=== PATIENT | female | born 1940 | race Caucasian/White ===

== ENCOUNTER 2016-05-05 20:23 | Inpatient (IN) | payer MEDICARE ==
--- NOTE | ~2016-05-05 | DS ---
Discharge Summary [id number] [place]. [address] NAME: CEZAR ABAD : 40 STATUS : ADM IN PAT#: [id number] AGE: 75 ADM/REG DATE : 05/05/16 MR#: [id number] REPORT SERV DATE: 05/14/16 DICTATED BY: HELADIO TRIPATHI DATE: 05/13/16 REPORT STATUS : Draft TRANSCRIBED BY: MODL DATE: 05/13/16 ADMISSION DATE: 05/05/2016 DISCHARGE DATE: ADDENDUM: To discharge summary dictated by Dr. Berg, work #[id number]. The patient was not discharged to intermediate facility yesterday secondary to unavailability of space. However, today, the patient will be discharged. ALLAN/LEYLA Heladio Tripathi MD / [id number] CC: Rolando Berg MD
--- NOTE | ~2016-05-05 | DS ---
Discharge Summary [facility] [address] [place]. [address] NAME: CEZAR ABAD : 40 STATUS : ADM IN PAT#: [id number] AGE: 75 ADM/REG DATE : 05/05/16 MR#: [id number] REPORT SERV DATE: 05/16/16 DICTATED BY: HELADIO TRIPATHI DATE: 05/15/16 REPORT STATUS : Draft TRANSCRIBED BY: LEYLA DATE: 05/15/16 ADMISSION DATE: 05/05/2016 DISCHARGE DATE: ADDENDUM: To discharge summary dictated by Dr. Berg on 05/13/2016 and also an addendum to discharge summary dictated by Dr. Tripathi on 05/14/2016. The patient was scheduled to be discharged on 05/13/2016; however, the patient was unable to be discharged due to unavailability of space. On 05/13/2016, [facility]; however, the patient was noted to have hyperkalemia with a potassium of 5.9. Management was initiated to correct her potassium. Her potassium was eventually gotten under control; however, the patient acutely decompensated overnight requiring being transitioned to BiPAP and also put on restraint due to severe agitation. The patient was also noted to have worsening kidney function with creatinine trending up to 2.09. The patient was placed on IV normal fluids with improvement. She was also noted to have elevated BUN, likely etiology due to increased urea production in the setting of Solu- Medrol that the patient was receiving. Status post IV fluid initiation, her kidney function has significantly improved. Her BUN has trended down. Creatinine is currently 1.29. Based on resolution of symptoms given that the patient is hemodynamically stable to be transferred to the [facility], the patient will be discharged today; however, we will continue normal saline until time of discharge. All other information noted on the discharge summary previously remains the same. TERESSA Heladio Tripathi MD / [id number] CC: MD Matthew Isbell M.D.
--- NOTE | ~2016-05-05 | HP ---
History And Physical [address] [address] [facility] [place]. [address] NAME: CEZAR ABAD : 40 STATUS : ADM IN [facility]#: [id number] AGE: 75 ADM/REG DATE : 05/05/16 MR#: [id number] REPORT SERV DATE: 05/06/16 DICTATED BY: YAS JEREZ DATE: 05/06/16 REPORT STATUS : Draft TRANSCRIBED BY: MODL DATE: 05/06/16 DATE OF ADMISSION: 05/05/2016 CHIEF COMPLAINT: A 75-year-old female presenting with increasing shortness of breath and confusion. HISTORY OF PRESENTING ILLNESS: The patient's history was obtained through careful interview with the patient and granddaughter coupled with review of [facility] medical records. The patient on 04/28/2016 had a fall, broke her right humerus. She was evaluated at [facility], placed in a sling. Unfortunately she has had difficult recovery from that right humerus fracture. She describes right arm pain, but is really unable to describe a quality or severity of that pain. But then over the last several days, she has had increasing weakness finally to the point where she does not even get out of bed, and needs increasing assistance with any of her activities of daily living. Around 05/02/2016 she began to develop an increasing cough and shortness of breath characterized by dyspnea on exertion. The cough has been nonproductive. Then today, she was being evaluated for physical activity and the family checked an O2 saturation and after exertion it dropped down to 60% on 4 L nasal cannula and they realized she had to come to the hospital for further evaluation. Also the patient over last two days has had increasing confusion, incoherence. Today she was talking to people who were not there and having overt hallucinations at times. She denies any chest pain. No abdominal pain. No headache. No light headedness. She describes diaphoresis, but no fevers or chills. REVIEW OF SYSTEMS: Otherwise, a 14-point review of systems was obtained and was negative. PAST MEDICAL HISTORY: 1. Parkinson disease. 2. Dementia. 3. COPD on 4 L nasal cannula. 4. Obstructive sleep apnea, but refuses her home CPAP. 5. Chronic pain management for chronic back pain. 6. Diabetes. 7. Hypertension. 8. Negative stress test in October 2014 with an ejection fraction greater than 60% and negative Holter monitor as well. History And Physical [address] [place]. [address] NAME: CEZAR ABAD : 40 STATUS : ADM IN PAT#: [id number] AGE: 75 ADM/REG DATE : 05/05/16 MR#: [id number] REPORT SERV DATE: 05/06/16 DICTATED BY: YAS JEREZ DATE: 05/06/16 REPORT STATUS : Draft TRANSCRIBED BY: LEYLA DATE: 05/06/16 PAST SURGICAL HISTORY: 1. Knee surgery. 2. Shoulder surgery. 3. Hysterectomy. 4. Appendectomy. ALLERGIES: TO SULFA. SOCIAL HISTORY: Quit smoking more than 10 years ago. No alcohol abuse. Lives in [place], [place]. Lives with a grandson, but he is not present through the day hours. The patient has been a for 7 years. She has three children, but only one is living and they lives in [place], [place]. FAMILY HISTORY: Son at young age in a motor vehicle accident. Had a daughter who 4 years ago, and she had diabetes and heart disease. CURRENT MEDICATIONS: 1. Albuterol inhaler. 2. Baclofen 10 mg p.o. b.i.d. 3. Symbicort two puffs inhale twice a day. 4. Neurontin 300 mg p.o. q.h.s. 5. Amaryl 2 mg daily. 6. Hydrochlorothiazide 25 mg daily. 7. Hydrocodone p.r.n. 8. Lisinopril 40 mg p.o. daily. 9. Lopressor 25 mg p.o. b.i.d. 10.Actos 45 mg daily. 11.Ranitidine 150 mg p.o. b.i.d. 12.Requip 1 mg p.o. q.h.s. 13.Crestor 20 mg daily. PHYSICAL EXAMINATION: VITAL SIGNS: Temperature 97.9, pulse 82, blood pressure 183/49, respiratory rate 20, and O2 saturation 93% on 4 L nasal cannula. GENERAL: An ill-appearing female. She appears in distress from her difficult labored breathing. HEENT: Pupils equal, round, and reactive to light. No conjunctival pallor. No scleral icterus. Nares are patent. Oropharynx is clear of obstruction. Moist mucous membranes. NECK: Trachea midline. No thyromegaly. LYMPH: No cervical lymphadenopathy. No supraclavicular lymphadenopathy. RESPIRATORY: The patient has quite harsh inspiratory and expiratory wheezes and upper respiratory rhonchi. No rales. No focal egophony. The patient does have quite a labored respiratory effort, and she is heaving with her abdomen to assist in breathing. CARDIOVASCULAR: Regular rate and rhythm. No murmurs, rubs, or gallops. No extremity edema is appreciated. ABDOMEN: Soft, nontender, and nondistended. Normal bowel sounds auscultated throughout. No History And Physical [address] [address] NAME: CEZAR ABAD : 40 STATUS : ADM IN [facility]#: [id number] AGE: 75 ADM/REG DATE : 05/05/16 MR#: [id number] REPORT SERV DATE: 05/06/16 DICTATED BY: YAS JEREZ DATE: 05/06/16 REPORT STATUS : Draft TRANSCRIBED BY: LEYLA DATE: 05/06/16 hepatosplenomegaly. DERMATOLOGICAL: Warm and dry extremities. No pallor. No cyanosis. PSYCHIATRIC: The patient is alert, appropriate. She is poorly oriented to time, location, and her recent history. She has a normal affect though and a very pleasant mood. LABORATORY DATA: ABG demonstrates pH 7.34, pCO2 of 63, a PaO2 of 64, and a bicarbonate of 33 on 36% FiO2. Urinalysis shows positive leukocyte esterase with 34 white blood cells. White blood cell count 7.0, hemoglobin 9.8, hematocrit 32.5, and platelets 201. Sodium 142, potassium 4.3, chloride 98, bicarb 36, BUN 36, creatinine 1.17, and glucose 239. Brain natriuretic peptide 154. Troponin negative. INR 1.0. STUDIES: A CT angiogram of the chest shows no pulmonary embolism, no infiltrates. ASSESSMENT AND PLAN: 1. Hypoxic and hypercapnic respiratory failure. Place on BiPAP overnight. Provide supportive care. 2. Chronic obstructive pulmonary disease exacerbation. Place on IV Solu-Medrol, Duo nebulizers, doxycycline. 3. Parkinson disease. 4. Dementia. 5. Diabetes. Check hemoglobin A1c. Place on home medications. Continue sliding scale insulin. 6. Urinary tract infection. Check urine culture. Place on IV Rocephin. I did the discuss the case with Dr. Santamaria in detail from Critical Care. KPL/MODL Yas Jerez M.D. / [id number] CC: Brayan Barnard M.D.
--- NOTE | ~2016-05-05 | DS ---
Discharge Summary [address] [facility] [place]. [address] NAME: CEZAR ABAD : 40 STATUS : ADM IN [facility]#: [id number] AGE: 75 ADM/REG DATE : 05/05/16 MR#: [id number] REPORT SERV DATE: 05/13/16 DICTATED BY: ROLANDO BERG DATE: 05/12/16 REPORT STATUS : Draft TRANSCRIBED BY: MODL DATE: 05/12/16 ADMISSION DATE: 05/05/2016 DISCHARGE DATE: REASON FOR ADMISSION: Shortness of breath with confusion. PROCEDURES DONE: 1. On 05/05/2016 CTA of chest. No PE. Minor subsegmental atelectasis, peripheral right lower lobe. No acute other pulmonary disease. 2. On 05/05/2016, x-ray right shoulder, multiple impacted fracture of proximal right humerus. 3. On 05/06/2016, chest x-ray: Mild vascular congestion. Borderline heart size. Acute humeral neck fracture. 4. On 05/07/2016, CT head without contrast: No acute infarct or hemorrhage. Mild atrophy and chronic white matter gliosis. HISTORY OF HOSPITAL STAY: A 75-year-old white female with past medical history of questionable Parkinson disease, dementia, COPD on 4 L nasal cannula, DONATO not on home CPAP, chronic pain, diabetes type 2, hypertension, presenting with shortness of breath and with confusion. The patient was admitted for further evaluation and shortness of breath with confusion. The patient was developing acute exacerbation of COPD with acute on chronic hypercapnic respiratory failure. The patient required BiPAP in order to resolve some of the patient's shortness of breath. In addition, the patient was also had a UTI which responded well with Ancef. Once the patient received her antibiotics, her UTI eventually cleared up. More importantly, the patient's dementia was exacerbating the patient confusion. The patient was started on Seroquel 12.5 mg b.i.d., but subsequently was given Seroquel 12.5 mg a.m. and 25 mg p.m. Her p.m. dose eventually helped the patient use her BiPAP at night which helped tremendously regarding the patient's shortness of breath. The patient's acute on chronic hypercapnic hypoxemic respiratory failure greatly improved with the use of BiPAP. Family has been advised that the patient will need to continue the Seroquel in order for the patient to use her BiPAP. DISPOSITION: The patient is feeling fine. No complaints. ACTIVITY: As tolerated. DIET: Diabetic. INSTRUCTIONS UPON DISCHARGE: The patient is to follow up with PMD within one to two weeks. MEDICATIONS UPON DISCHARGE: 1. Gabapentin 300 mg p.o. q.h.s. 2. Baclofen 10 mg p.o. b.i.d. 3. Zantac 150 mg p.o. b.i.d. 4. Amaryl 2 mg p.o. q.h.s. 5. Insulin sliding scale medium dose. Discharge Summary [address] [address] NAME: CEZAR ABAD : 40 STATUS : ADM IN [facility]#: [id number] AGE: 75 ADM/REG DATE : 05/05/16 MR#: [id number] REPORT SERV DATE: 05/13/16 DICTATED BY: ROLANDO BERG DATE: 05/12/16 REPORT STATUS : Draft TRANSCRIBED BY: LEYLA DATE: 05/12/16 6. Lisinopril 40 mg p.o. daily. 7. Metoprolol 25 mg p.o. b.i.d. 8. Actos 45 mg p.o. daily. 9. Nystatin powder topical t.i.d. 10.Seroquel 25 mg p.o. q.h.s. 11.Seroquel 12.5 mg p.o. q.a.m. 12.Requip 1 mg p.o. q.h.s. 13.DuoNeb nebulizers q.4 hours p.r.n. 14.Symbicort 160/4.5 mcg two puffs b.i.d. 15.Hydrochlorothiazide 25 mg p.o. b.i.d. 16.Crestor 20 mg p.o. daily. 17.Ferney 7.5 mg three times a day p.r.n. 18.ProAir one to two puffs p.r.n. DIAGNOSES UPON DISCHARGE: 1. Shortness of breath with confusion secondary to acute exacerbation of chronic obstructive pulmonary disease, acute on chronic hypercapnic hypoxemia respiratory failure, dementia, urinary tract infection. 2. Acute exacerbation of chronic obstructive pulmonary disease. 3. Acute on chronic hypercapnic hypoxemic respiratory failure. 4. Dementia. 5. Urinary tract infection secondary to Escherichia coli. 6. Diabetes type 2. 7. Hypertension. 8. Dementia. 9. History of Parkinson's disease, not on meds. 10.Chronic pain. 11.Hypercholesterolemia. FBJ/MODL Rolando Berg MD / [id number] CC: Rolando Berg MD
--- NOTE | ~2016-05-05 | DS ---
Discharge Summary [place] [address] [facility] [address] [place]. [address] NAME: CEZAR ABAD : 40 STATUS : DIS IN PAT#: [id number] AGE: 75 ADM/REG DATE : 05/05/16 MR#: [id number] REPORT SERV DATE: 05/17/16 DICTATED BY: HELADIO TRIPATHI DATE: 05/16/16 REPORT STATUS : Draft TRANSCRIBED BY: LEYLA DATE: 05/16/16 ADMISSION DATE: 05/05/2016 DISCHARGE DATE: 05/16/2016 ADDENDUM: The patient was unable to be discharged yesterday due to the fact that she was in physical restraint for less than 24 hours. Therefore, the patient was kept in-house overnight. No acute events overnight. The patient was hemodynamically stable, was not placed on restraints and will be discharged today. ALLAN/LEYLA Heladio Tripathi MD / [id number]
[2016-05-05 18:16] LABS: BASOPHILS 0.3 %; BASOPHILS ABSOLUTE 0.02 10/3/uL (0.0-0.16); EOSINOPHILS 1.3 %; EOSINOPHILS ABSOLUTE 0.09 10/3/uL (0.0-0.53); ER CBC TAT 0 Hrs 15 Mins; HEMATOCRIT 32.5 % (36.0-48.0); HEMOGLOBIN 9.8 g/dL (12.0-16.0); IMMATURE GRANULOCYTES 0.6 %; IMMATURE GRANULOCYTES ABSOLUTE 0.04 10/3/uL (0.0-0.11); LYMPHOCYTES 7.7 %; LYMPHOCYTES ABSOLUTE 0.54 10/3/uL (0.67-4.30); MEAN CORPUS HGB CONC 30.2 g/dL (32.0-36.0); MEAN CORPUSCULAR HEMOGLOB 28.4 pg (26.0-34.0); MEAN CORPUSCULAR VOLUME 94.2 fL (80-100); MEAN PLATELET VOLUME 10.9 fL (9.2-13.0); MONOCYTES ABSOLUTE 0.14 10/3/uL (0.21-1.20); NEUTROPHILS 88.1 %; NEUTROPHILS ABSOLUTE 6.18 10/3/uL (2.02-8.40); PLATELET COUNT 201 10/3/uL (150-400); RBC DISTRIBUTION WIDTH 14.8 % (12.0-16.0); RED CELL COUNT 3.45 10/6/uL (4.0-5.6)
[2016-05-05 18:17] LABS: MANUAL DIFF NO %
[2016-05-05 18:34] LABS: PROTIME (NOT ORD) 12.7 SEC (12.0-14.5)
[2016-05-05 18:35] LABS: BUN (BLOOD UREA NITROGEN) 36 MG/DL (6-23); CALCIUM, SERUM 9.1 MG/DL (8.5-10.4); CHLORIDE, SERUM 98 MMOL/L (96-112); CO2 (CARBON DIOXIDE) 34 MMOL/L (24-34); CREATININE 1.17 MG/DL (0.55-1.02); GFR AFRICAN AMERICAN 53 ML/MIN (>=60); GFR NON AFRICAN AMERICAN 46 ML/MIN (>=60); GLUCOSE, SERUM 239 MG/DL (60-99); PARTIAL THROMBO TIME 27.4 SEC (22.5-37.2); POTASSIUM, SERUM 4.3 MMOL/L (3.5-5.3); SODIUM, SERUM 142 MMOL/L (135-148); TROPONIN I <0.02 NG/ML (<0.05)
[2016-05-05 18:40] LABS: CHEST PAIN PROFILE TAT 0 Hrs 34 Mins
[2016-05-05 19:08] LABS: BE (BASE EXCESS) 6.2 MEQ/L (0 +/- 2.5); CARBOXYHEMOGLOBIN 1.3 % (0-3); DEVICE NC; HCO3 (ACTUAL BICARBONATE) 33.5 MEQ/L (23-27); HEMOBLOGIN CONTENT 11.1 G/DL (12-16); INSTRUMENT SERIAL # 8087; METHEMOGLOBIN 0.3 % (0-3); O2 CONTENT 14.2 VOL% (18-24); PCO2 (CO2 TENSION) 63 MMHG (35-45); PO2 (O2 TENSION) 64 MMHG (79-93); SAMPLE Arterial; pH 7.34 (7.37-7.43)
[2016-05-05 19:57] LABS: ASCORBIC ACID (UR NOT ORDER) NEG (NEG); BILIRUBIN, URINE NEGATIVE (NEG); ER URINALYSIS TAT 0 Hrs 14 Mins; KETONE, URINE 20 MG/DL (NEG); LEUKOCYTE ESTERASE(NOT OR MOD (NEG); NITRITE (URINE) NEG (NEG); WBC (NOT ORDERED) (RFLEX) 34 (0-5)
[2016-05-05] MEDS ORDERED: NEUR300 PO (22:39)
[2016-05-05] MEDS ORDERED: HYDROCHLOROT25 MG PO (22:39)
[2016-05-05] MEDS ORDERED: AMARYL2 PO (22:39)
[2016-05-05] MEDS ORDERED: LOP25 PO (22:40)
[2016-05-05] MEDS ORDERED: LIOR10 PO (22:40)
[2016-05-05] MEDS ORDERED: LISINOPRIL40 MG PO (22:40)
[2016-05-05] MEDS ORDERED: ACTOS45 PO (22:40)
[2016-05-05] MEDS ORDERED: CRESTOR20 MG PO (22:41)
[2016-05-05] MEDS ORDERED: ZANTAC 150 PO (22:41)
[2016-05-05] MEDS ORDERED: REQUIP1 PO (22:41)
[2016-05-05] MEDS ORDERED: NORCO1 TA2 PO (22:41)
[2016-05-05] MEDS ORDERED: PROAIR HFA INH (22:42)
[2016-05-05] MEDS ORDERED: SYMBICORT 160/41 INH INH (22:46)
[2016-05-06 04:06] LABS: ALLENS TEST Pos; BE (BASE EXCESS) 7.9 MEQ/L (0 +/- 2.5); BIPAP 18/6 cm.H2O; CARBOXYHEMOGLOBIN 0.4 % (0-3); HCO3 (ACTUAL BICARBONATE) 32.7 MEQ/L (23-27); HEMOBLOGIN CONTENT 10.2 G/DL (12-16); INSTRUMENT SERIAL # 8083; METHEMOGLOBIN 0.2 % (0-3); O2 CONTENT 13.8 VOL% (18-24); OPERATOR ID 35190; PCO2 (CO2 TENSION) 47 MMHG (35-45); PO2 (O2 TENSION) 78 MMHG (79-93); SAMPLE Arterial; pH 7.46 (7.37-7.43)
[2016-05-06 07:04] LABS: BASOPHILS 0.2 %; BASOPHILS ABSOLUTE 0.01 10/3/uL (0.0-0.16); EOSINOPHILS 0 %; HEMATOCRIT 30.8 % (36.0-48.0); HEMOGLOBIN 9.6 g/dL (12.0-16.0); IMMATURE GRANULOCYTES 0.9 %; IMMATURE GRANULOCYTES ABSOLUTE 0.04 10/3/uL (0.0-0.11); LYMPHOCYTES ABSOLUTE 0.68 10/3/uL (0.67-4.30); MEAN CORPUS HGB CONC 31.2 g/dL (32.0-36.0); MEAN CORPUSCULAR HEMOGLOB 28.8 pg (26.0-34.0); MEAN CORPUSCULAR VOLUME 92.5 fL (80-100); MEAN PLATELET VOLUME 10.9 fL (9.2-13.0); MONOCYTES 8.5 %; MONOCYTES ABSOLUTE 0.36 10/3/uL (0.21-1.20); NEUTROPHILS 74.4 %; NEUTROPHILS ABSOLUTE 3.15 10/3/uL (2.02-8.40); PLATELET COUNT 207 10/3/uL (150-400); RBC DISTRIBUTION WIDTH 14.7 % (12.0-16.0); RED CELL COUNT 3.33 10/6/uL (4.0-5.6); WHITE BLOOD CELLS 4.2 10/3/uL (4.5-10.5)
[2016-05-06 07:06] LABS: MANUAL DIFF NO %
[2016-05-06 07:11] LABS: INTERNATIONAL NORMAL RATI 1.1 UNITS (-); PARTIAL THROMBO TIME 31.4 SEC (22.5-37.2); PROTIME (NOT ORD) 14.1 SEC (12.0-14.5)
[2016-05-06 07:29] LABS: A/G RATIO 0.7 (0.7-1.9); ALBUMIN 2.9 G/DL (3.5-5.0); ALKALINE PHOSPHATASE 53 U/L (45-117); BUN (BLOOD UREA NITROGEN) 34 MG/DL (6-23); CALCIUM, SERUM 9.1 MG/DL (8.5-10.4); CHLORIDE, SERUM 98 MMOL/L (96-112); CO2 (CARBON DIOXIDE) 33 MMOL/L (24-34); CREATININE 1.26 MG/DL (0.55-1.02); GFR AFRICAN AMERICAN 48 ML/MIN (>=60); GFR NON AFRICAN AMERICAN 42 ML/MIN (>=60); GLOBULIN 4.1 G/DL (2.5-4.1); GLUCOSE, SERUM 134 MG/DL (60-99); PHOSPHORUS, SERUM 1.8 MG/DL (2.5-4.5); POTASSIUM, SERUM 3.6 MMOL/L (3.5-5.3); SGOT(AST) 11 U/L (5-40); SGPT(ALT) 14 U/L (5-65); SODIUM, SERUM 141 MMOL/L (135-148); TROPONIN I <0.02 NG/ML (<0.05)
[2016-05-06 07:48] LABS: PROCALCITONIN <0.05 ng/mL (<0.5)
[2016-05-06 07:49] LABS: B NATRIURETIC PEPTIDE (BNP) 146.1 PG/ML (< 100.0)
[2016-05-06 12:48] LABS: GLYCOHEMOGLOBIN (HbA1c) 6.1 % (4.7-6.1)
[2016-05-07 09:48] LABS: BE (BASE EXCESS) 5.3 MEQ/L (0 +/- 2.5); CARBOXYHEMOGLOBIN 0.3 % (0-3); HEMOBLOGIN CONTENT 11.1 G/DL (12-16); INSTRUMENT SERIAL # 11843; METHEMOGLOBIN 0.5 % (0-3); O2 CONTENT 13.6 VOL% (18-24); PCO2 (CO2 TENSION) 51 MMHG (35-45); PO2 (O2 TENSION) 56 MMHG (79-93)
[2016-05-07 09:49] LABS: ALLENS TEST Pos; DEVICE NC; SAMPLE Arterial
[2016-05-07 10:15] LABS: HEMATOCRIT 31.1 % (36.0-48.0); HEMOGLOBIN 9.8 g/dL (12.0-16.0); MEAN CORPUS HGB CONC 31.5 g/dL (32.0-36.0); MEAN CORPUSCULAR HEMOGLOB 28.2 pg (26.0-34.0); MEAN PLATELET VOLUME 10.8 fL (9.2-13.0); PLATELET COUNT 249 10/3/uL (150-400); RBC DISTRIBUTION WIDTH 15.3 % (12.0-16.0); RED CELL COUNT 3.47 10/6/uL (4.0-5.6)
[2016-05-07 10:21] LABS: MANUAL DIFF YES %; MEAN CORPUSCULAR VOLUME 89.6 fL (80-100); WHITE BLOOD CELLS 9.7 10/3/uL (4.5-10.5)
[2016-05-07 10:33] LABS: BUN (BLOOD UREA NITROGEN) 50 MG/DL (6-23); CALCIUM, SERUM 9.3 MG/DL (8.5-10.4); CHLORIDE, SERUM 98 MMOL/L (96-112); CO2 (CARBON DIOXIDE) 32 MMOL/L (24-34); CREATININE 1.54 MG/DL (0.55-1.02); GFR AFRICAN AMERICAN 38 ML/MIN (>=60); GFR NON AFRICAN AMERICAN 33 ML/MIN (>=60); GLUCOSE, SERUM 152 MG/DL (60-99); POTASSIUM, SERUM 4.6 MMOL/L (3.5-5.3); SODIUM, SERUM 141 MMOL/L (135-148)
[2016-05-07 10:34] LABS: BAND NEUTROPHILS 4 %; LYMPHOCYTES 12 %; LYMPHOCYTES ABSOLUTE (CALC) 1.16 10/3/uL (0.67-4.30); MONOCYTES 2 %; MONOCYTES ABSOLUTE (CALC) 0.19 10/3/uL (0.21-1.20); NEUTROPHILS ABSOLUTE (CALC) 8.34 10/3/uL (2.02-8.40); PLATELET ESTIMATE ADQ (ADEQUATE); SEGMENTED NEUTROPHIL (0) 82 %; TOTAL NUCLEATED CELLS 100
[2016-05-07 10:35] LABS: POLYCHROMASIA 1+ (2-5/OIF) (0-1/OIF)
[2016-05-07 14:33] LABS: ALLENS TEST Pos; BE (BASE EXCESS) 8.5 MEQ/L (0 +/- 2.5); BIPAP 18/6 cm.H2O; CARBOXYHEMOGLOBIN 0.3 % (0-3); INSTRUMENT SERIAL # 8083; METHEMOGLOBIN 0.2 % (0-3); O2 CONTENT 13.2 VOL% (18-24); PCO2 (CO2 TENSION) 52 MMHG (35-45); PO2 (O2 TENSION) 69 MMHG (79-93); SAMPLE Arterial; pH 7.43 (7.37-7.43)
[2016-05-08 04:19] LABS: ALLENS TEST Pos; BE (BASE EXCESS) 2.2 MEQ/L (0 +/- 2.5); BIPAP 18/6 cm.H2O; CARBOXYHEMOGLOBIN 1.2 % (0-3); HCO3 (ACTUAL BICARBONATE) 28.7 MEQ/L (23-27); HEMOBLOGIN CONTENT 11.7 G/DL (12-16); INSTRUMENT SERIAL # 8083; METHEMOGLOBIN 0.1 % (0-3); O2 CONTENT 15.8 VOL% (18-24); OPERATOR ID 30014; PCO2 (CO2 TENSION) 54 MMHG (35-45); PO2 (O2 TENSION) 87 MMHG (79-93); SAMPLE Arterial; pH 7.35 (7.37-7.43)
[2016-05-08 07:55] LABS: BASOPHILS 0.2 %; BASOPHILS ABSOLUTE 0.01 10/3/uL (0.0-0.16); EOSINOPHILS 0 %; HEMATOCRIT 30.2 % (36.0-48.0); HEMOGLOBIN 9.5 g/dL (12.0-16.0); IMMATURE GRANULOCYTES ABSOLUTE 0.06 10/3/uL (0.0-0.11); LYMPHOCYTES 15.5 %; LYMPHOCYTES ABSOLUTE 0.94 10/3/uL (0.67-4.30); MEAN CORPUS HGB CONC 31.5 g/dL (32.0-36.0); MEAN CORPUSCULAR HEMOGLOB 29.1 pg (26.0-34.0); MEAN PLATELET VOLUME 10.5 fL (9.2-13.0); MONOCYTES 8.1 %; MONOCYTES ABSOLUTE 0.49 10/3/uL (0.21-1.20); NEUTROPHILS 75.2 %; NEUTROPHILS ABSOLUTE 4.58 10/3/uL (2.02-8.40); PLATELET COUNT 217 10/3/uL (150-400); RBC DISTRIBUTION WIDTH 15.4 % (12.0-16.0); RED CELL COUNT 3.27 10/6/uL (4.0-5.6); WHITE BLOOD CELLS 6.1 10/3/uL (4.5-10.5)
[2016-05-08 07:56] LABS: MANUAL DIFF NO %; MEAN CORPUSCULAR VOLUME 92.4 fL (80-100)
[2016-05-08 08:51] LABS: A/G RATIO 0.7 (0.7-1.9); ALBUMIN 2.7 G/DL (3.5-5.0); ALKALINE PHOSPHATASE 48 U/L (45-117); CALCIUM, SERUM 8.9 MG/DL (8.5-10.4); CHLORIDE, SERUM 102 MMOL/L (96-112); CO2 (CARBON DIOXIDE) 31 MMOL/L (24-34); CREATININE 1.51 MG/DL (0.55-1.02); GFR AFRICAN AMERICAN 39 ML/MIN (>=60); GFR NON AFRICAN AMERICAN 33 ML/MIN (>=60); GLOBULIN 3.8 G/DL (2.5-4.1); GLUCOSE, SERUM 155 MG/DL (60-99); PHOSPHORUS, SERUM 4.2 MG/DL (2.5-4.5); POTASSIUM, SERUM 4.3 MMOL/L (3.5-5.3); SGOT(AST) 11 U/L (5-40); SGPT(ALT) 15 U/L (5-65); SODIUM, SERUM 145 MMOL/L (135-148); TOTAL PROTEIN 6.5 G/DL (6.0-8.5)
[2016-05-08 08:56] LABS: BUN (BLOOD UREA NITROGEN) 57 MG/DL (6-23); TOTAL BILIRUBIN 0.5 MG/DL (0-1.2)
[2016-05-09 06:33] LABS: BASOPHILS 0.2 %; BASOPHILS ABSOLUTE 0.01 10/3/uL (0.0-0.16); EOSINOPHILS 0.2 %; EOSINOPHILS ABSOLUTE 0.01 10/3/uL (0.0-0.53); HEMOGLOBIN 9.4 g/dL (12.0-16.0); IMMATURE GRANULOCYTES ABSOLUTE 0.06 10/3/uL (0.0-0.11); LYMPHOCYTES 17.8 %; LYMPHOCYTES ABSOLUTE 1.02 10/3/uL (0.67-4.30); MEAN CORPUS HGB CONC 31.3 g/dL (32.0-36.0); MEAN CORPUSCULAR HEMOGLOB 28.7 pg (26.0-34.0); MEAN CORPUSCULAR VOLUME 91.5 fL (80-100); MEAN PLATELET VOLUME 11.3 fL (9.2-13.0); MONOCYTES 4.5 %; MONOCYTES ABSOLUTE 0.26 10/3/uL (0.21-1.20); NEUTROPHILS 76.3 %; NEUTROPHILS ABSOLUTE 4.36 10/3/uL (2.02-8.40); PLATELET COUNT 223 10/3/uL (150-400); RBC DISTRIBUTION WIDTH 15.5 % (12.0-16.0); RED CELL COUNT 3.28 10/6/uL (4.0-5.6); WHITE BLOOD CELLS 5.7 10/3/uL (4.5-10.5)
[2016-05-09 06:42] LABS: MANUAL DIFF NO %
[2016-05-09 06:46] LABS: ALBUMIN 2.6 G/DL (3.5-5.0); CALCIUM, SERUM 8.7 MG/DL (8.5-10.4); CHLORIDE, SERUM 102 MMOL/L (96-112); CO2 (CARBON DIOXIDE) 29 MMOL/L (24-34); CREATININE 1.54 MG/DL (0.55-1.02); GFR AFRICAN AMERICAN 38 ML/MIN (>=60); GFR NON AFRICAN AMERICAN 33 ML/MIN (>=60); PHOSPHORUS, SERUM 3.7 MG/DL (2.5-4.5); POTASSIUM, SERUM 4.6 MMOL/L (3.5-5.3); SODIUM, SERUM 142 MMOL/L (135-148)
[2016-05-09 06:47] LABS: BUN (BLOOD UREA NITROGEN) 67 MG/DL (6-23); GLUCOSE, SERUM 203 MG/DL (60-99)
[2016-05-10 07:49] LABS: BASOPHILS 0.2 %; BASOPHILS ABSOLUTE 0.01 10/3/uL (0.0-0.16); EOSINOPHILS 0 %; HEMATOCRIT 32.2 % (36.0-48.0); HEMOGLOBIN 9.9 g/dL (12.0-16.0); IMMATURE GRANULOCYTES 2.1 %; IMMATURE GRANULOCYTES ABSOLUTE 0.13 10/3/uL (0.0-0.11); LYMPHOCYTES 15.1 %; LYMPHOCYTES ABSOLUTE 0.94 10/3/uL (0.67-4.30); MEAN CORPUS HGB CONC 30.7 g/dL (32.0-36.0); MEAN CORPUSCULAR HEMOGLOB 27.4 pg (26.0-34.0); MEAN CORPUSCULAR VOLUME 89.2 fL (80-100); MEAN PLATELET VOLUME 11.5 fL (9.2-13.0); MONOCYTES ABSOLUTE 0.25 10/3/uL (0.21-1.20); NEUTROPHILS 78.6 %; NEUTROPHILS ABSOLUTE 4.91 10/3/uL (2.02-8.40); PLATELET COUNT 231 10/3/uL (150-400); RBC DISTRIBUTION WIDTH 15.3 % (12.0-16.0); RED CELL COUNT 3.61 10/6/uL (4.0-5.6); WHITE BLOOD CELLS 6.2 10/3/uL (4.5-10.5)
[2016-05-10 07:50] LABS: MANUAL DIFF NO %
[2016-05-10 08:02] LABS: A/G RATIO 0.7 (0.7-1.9); ALBUMIN 2.6 G/DL (3.5-5.0); ALKALINE PHOSPHATASE 53 U/L (45-117); BUN (BLOOD UREA NITROGEN) 69 MG/DL (6-23); CALCIUM, SERUM 8.6 MG/DL (8.5-10.4); CHLORIDE, SERUM 101 MMOL/L (96-112); CO2 (CARBON DIOXIDE) 30 MMOL/L (24-34); CREATININE 1.51 MG/DL (0.55-1.02); GFR AFRICAN AMERICAN 39 ML/MIN (>=60); GFR NON AFRICAN AMERICAN 33 ML/MIN (>=60); GLOBULIN 3.6 G/DL (2.5-4.1); PHOSPHORUS, SERUM 3.4 MG/DL (2.5-4.5); POTASSIUM, SERUM 4.9 MMOL/L (3.5-5.3); SGOT(AST) 8 U/L (5-40); SGPT(ALT) 13 U/L (5-65); SODIUM, SERUM 139 MMOL/L (135-148); TOTAL BILIRUBIN 0.2 MG/DL (0-1.2); TOTAL PROTEIN 6.2 G/DL (6.0-8.5)
[2016-05-10 08:03] LABS: GLUCOSE, SERUM 246 MG/DL (60-99)
[2016-05-11 06:17] LABS: ASCORBIC ACID (UR NOT ORDER) NEG (NEG); BILIRUBIN, URINE NEGATIVE (NEG); KETONE, URINE NEGATIVE (NEG); LEUKOCYTE ESTERASE(NOT OR NEG (NEG); WBC (NOT ORDERED) (RFLEX) < 1 (0-5)
[2016-05-11 06:44] LABS: BASOPHILS 0.1 %; BASOPHILS ABSOLUTE 0.01 10/3/uL (0.0-0.16); EOSINOPHILS 0 %; HEMATOCRIT 31.4 % (36.0-48.0); IMMATURE GRANULOCYTES 2.9 %; IMMATURE GRANULOCYTES ABSOLUTE 0.21 10/3/uL (0.0-0.11); LYMPHOCYTES 13.6 %; LYMPHOCYTES ABSOLUTE 0.97 10/3/uL (0.67-4.30); MEAN CORPUS HGB CONC 31.8 g/dL (32.0-36.0); MEAN CORPUSCULAR HEMOGLOB 28.8 pg (26.0-34.0); MEAN CORPUSCULAR VOLUME 90.5 fL (80-100); MEAN PLATELET VOLUME 11.8 fL (9.2-13.0); MONOCYTES 5.3 %; MONOCYTES ABSOLUTE 0.38 10/3/uL (0.21-1.20); NEUTROPHILS 78.1 %; NEUTROPHILS ABSOLUTE 5.57 10/3/uL (2.02-8.40); PLATELET COUNT 235 10/3/uL (150-400); RBC DISTRIBUTION WIDTH 15.2 % (12.0-16.0); RED CELL COUNT 3.47 10/6/uL (4.0-5.6); WHITE BLOOD CELLS 7.1 10/3/uL (4.5-10.5)
[2016-05-11 06:50] LABS: MANUAL DIFF NO %
[2016-05-11 07:42] LABS: ALBUMIN 2.6 G/DL (3.5-5.0); CALCIUM, SERUM 8.8 MG/DL (8.5-10.4); CHLORIDE, SERUM 102 MMOL/L (96-112); CO2 (CARBON DIOXIDE) 28 MMOL/L (24-34); CREATININE 1.51 MG/DL (0.55-1.02); GFR AFRICAN AMERICAN 39 ML/MIN (>=60); GFR NON AFRICAN AMERICAN 33 ML/MIN (>=60); GLUCOSE, SERUM 240 MG/DL (60-99); PHOSPHORUS, SERUM 3.4 MG/DL (2.5-4.5); POTASSIUM, SERUM 5.2 MMOL/L (3.5-5.3); SODIUM, SERUM 138 MMOL/L (135-148)
[2016-05-11 07:44] LABS: BUN (BLOOD UREA NITROGEN) 79 MG/DL (6-23)
[2016-05-12 05:09] LABS: BASOPHILS 0.3 %; BASOPHILS ABSOLUTE 0.02 10/3/uL (0.0-0.16); EOSINOPHILS 0.1 %; EOSINOPHILS ABSOLUTE 0.01 10/3/uL (0.0-0.53); HEMOGLOBIN 9.9 g/dL (12.0-16.0); IMMATURE GRANULOCYTES 3.2 %; IMMATURE GRANULOCYTES ABSOLUTE 0.25 10/3/uL (0.0-0.11); LYMPHOCYTES 11.9 %; LYMPHOCYTES ABSOLUTE 0.94 10/3/uL (0.67-4.30); MEAN CORPUS HGB CONC 31.9 g/dL (32.0-36.0); MEAN CORPUSCULAR HEMOGLOB 28.9 pg (26.0-34.0); MEAN CORPUSCULAR VOLUME 90.4 fL (80-100); MEAN PLATELET VOLUME 11.9 fL (9.2-13.0); MONOCYTES 3.7 %; MONOCYTES ABSOLUTE 0.29 10/3/uL (0.21-1.20); NEUTROPHILS 80.8 %; NEUTROPHILS ABSOLUTE 6.38 10/3/uL (2.02-8.40); PLATELET COUNT 230 10/3/uL (150-400); RBC DISTRIBUTION WIDTH 15.4 % (12.0-16.0); RED CELL COUNT 3.43 10/6/uL (4.0-5.6); WHITE BLOOD CELLS 7.9 10/3/uL (4.5-10.5)
[2016-05-12 05:17] LABS: MANUAL DIFF NO %
[2016-05-12 05:31] LABS: A/G RATIO 0.7 (0.7-1.9); ALBUMIN 2.5 G/DL (3.5-5.0); ALKALINE PHOSPHATASE 51 U/L (45-117); CALCIUM, SERUM 8.7 MG/DL (8.5-10.4); CHLORIDE, SERUM 97 MMOL/L (96-112); CO2 (CARBON DIOXIDE) 25 MMOL/L (24-34); CREATININE 1.82 MG/DL (0.55-1.02); GFR AFRICAN AMERICAN 31 ML/MIN (>=60); GFR NON AFRICAN AMERICAN 27 ML/MIN (>=60); GLOBULIN 3.4 G/DL (2.5-4.1); GLUCOSE, SERUM 285 MG/DL (60-99); PHOSPHORUS, SERUM 4.1 MG/DL (2.5-4.5); POTASSIUM, SERUM 5.9 MMOL/L (3.5-5.3); SGOT(AST) 10 U/L (5-40); SGPT(ALT) 6 U/L (5-65); TOTAL BILIRUBIN 0.2 MG/DL (0-1.2); TOTAL PROTEIN 5.9 G/DL (6.0-8.5)
[2016-05-12 05:42] LABS: BUN (BLOOD UREA NITROGEN) 99 MG/DL (6-23); SODIUM, SERUM 131 MMOL/L (135-148)
[2016-05-14 08:46] LABS: CALCIUM, SERUM 7.9 MG/DL (8.5-10.4); CHLORIDE, SERUM 98 MMOL/L (96-112); CO2 (CARBON DIOXIDE) 28 MMOL/L (24-34); CREATININE 2.03 MG/DL (0.55-1.02); GFR AFRICAN AMERICAN 27 ML/MIN (>=60); GFR NON AFRICAN AMERICAN 23 ML/MIN (>=60); POTASSIUM, SERUM 5.1 MMOL/L (3.5-5.3); SODIUM, SERUM 135 MMOL/L (135-148)
[2016-05-14 08:48] LABS: BUN (BLOOD UREA NITROGEN) 127 MG/DL (6-23); GLUCOSE, SERUM 218 MG/DL (60-99)
[2016-05-14 10:54] LABS: ALLENS TEST Pos; BIPAP 16/6 cm.H2O; CARBOXYHEMOGLOBIN 0.1 % (0-3); HCO3 (ACTUAL BICARBONATE) 25.8 MEQ/L (23-27); HEMOBLOGIN CONTENT 9.7 G/DL (12-16); INSTRUMENT SERIAL # 8083; METHEMOGLOBIN 0.4 % (0-3); O2 CONTENT 13.6 VOL% (18-24); OPERATOR ID 32214; PCO2 (CO2 TENSION) 60 MMHG (35-45); PO2 (O2 TENSION) 130 MMHG (79-93); SAMPLE Arterial; pH 7.25 (7.37-7.43)
[2016-05-15 06:20] LABS: BASOPHILS 0.1 %; BASOPHILS ABSOLUTE 0.01 10/3/uL (0.0-0.16); EOSINOPHILS 0 %; HEMATOCRIT 28.8 % (36.0-48.0); HEMOGLOBIN 9.1 g/dL (12.0-16.0); IMMATURE GRANULOCYTES 1.5 %; IMMATURE GRANULOCYTES ABSOLUTE 0.11 10/3/uL (0.0-0.11); LYMPHOCYTES 10.7 %; LYMPHOCYTES ABSOLUTE 0.79 10/3/uL (0.67-4.30); MEAN CORPUS HGB CONC 31.6 g/dL (32.0-36.0); MEAN CORPUSCULAR HEMOGLOB 28.1 pg (26.0-34.0); MEAN CORPUSCULAR VOLUME 88.9 fL (80-100); MEAN PLATELET VOLUME 11.8 fL (9.2-13.0); MONOCYTES 5.4 %; NEUTROPHILS 82.3 %; PLATELET COUNT 225 10/3/uL (150-400); RBC DISTRIBUTION WIDTH 15.9 % (12.0-16.0); RED CELL COUNT 3.24 10/6/uL (4.0-5.6); WHITE BLOOD CELLS 7.4 10/3/uL (4.5-10.5)
[2016-05-15 06:23] LABS: MANUAL DIFF NO %
[2016-05-15 06:28] LABS: A/G RATIO 0.8 (0.7-1.9); ALBUMIN 2.5 G/DL (3.5-5.0); ALKALINE PHOSPHATASE 59 U/L (45-117); BUN (BLOOD UREA NITROGEN) 110 MG/DL (6-23); CALCIUM, SERUM 8.2 MG/DL (8.5-10.4); CHLORIDE, SERUM 107 MMOL/L (96-112); CO2 (CARBON DIOXIDE) 26 MMOL/L (24-34); CREATININE 1.29 MG/DL (0.55-1.02); GFR AFRICAN AMERICAN 47 ML/MIN (>=60); GFR NON AFRICAN AMERICAN 40 ML/MIN (>=60); GLUCOSE, SERUM 147 MG/DL (60-99); POTASSIUM, SERUM 4.6 MMOL/L (3.5-5.3); SGOT(AST) 12 U/L (5-40); SGPT(ALT) 9 U/L (5-65); SODIUM, SERUM 142 MMOL/L (135-148); TOTAL BILIRUBIN 0.2 MG/DL (0-1.2); TOTAL PROTEIN 5.5 G/DL (6.0-8.5)
[2016-05-15 18:11] LABS: SODIUM, URINE 33 MEQ/L
[2016-05-16 05:11] LABS: A/G RATIO 0.9 (0.7-1.9); ALBUMIN 2.4 G/DL (3.5-5.0); ALKALINE PHOSPHATASE 56 U/L (45-117); CALCIUM, SERUM 7.9 MG/DL (8.5-10.4); CHLORIDE, SERUM 108 MMOL/L (96-112); CO2 (CARBON DIOXIDE) 26 MMOL/L (24-34); CREATININE 1.21 MG/DL (0.55-1.02); GFR AFRICAN AMERICAN 51 ML/MIN (>=60); GFR NON AFRICAN AMERICAN 44 ML/MIN (>=60); GLOBULIN 2.8 G/DL (2.5-4.1); POTASSIUM, SERUM 4.7 MMOL/L (3.5-5.3); SGOT(AST) 9 U/L (5-40); SGPT(ALT) 14 U/L (5-65); SODIUM, SERUM 143 MMOL/L (135-148); TOTAL BILIRUBIN 0.3 MG/DL (0-1.2); TOTAL PROTEIN 5.2 G/DL (6.0-8.5)
[2016-05-16 05:13] LABS: BUN (BLOOD UREA NITROGEN) 101 MG/DL (6-23); GLUCOSE, SERUM 177 MG/DL (60-99)
[2016-05-16 05:29] LABS: BASOPHILS 0.1 %; BASOPHILS ABSOLUTE 0.01 10/3/uL (0.0-0.16); EOSINOPHILS 0 %; HEMATOCRIT 27.5 % (36.0-48.0); HEMOGLOBIN 8.7 g/dL (12.0-16.0); IMMATURE GRANULOCYTES 1.7 %; IMMATURE GRANULOCYTES ABSOLUTE 0.14 10/3/uL (0.0-0.11); LYMPHOCYTES 10.2 %; LYMPHOCYTES ABSOLUTE 0.85 10/3/uL (0.67-4.30); MEAN CORPUS HGB CONC 31.6 g/dL (32.0-36.0); MEAN PLATELET VOLUME 11.9 fL (9.2-13.0); MONOCYTES 6.2 %; MONOCYTES ABSOLUTE 0.52 10/3/uL (0.21-1.20); NEUTROPHILS 81.8 %; NEUTROPHILS ABSOLUTE 6.85 10/3/uL (2.02-8.40); PLATELET COUNT 217 10/3/uL (150-400); RBC DISTRIBUTION WIDTH 15.8 % (12.0-16.0); WHITE BLOOD CELLS 8.4 10/3/uL (4.5-10.5)
[2016-05-16 05:32] LABS: MANUAL DIFF NO %; MEAN CORPUSCULAR VOLUME 91.7 fL (80-100)
== END 2016-05-16 14:07 | DRG 189 ==
LOC: ER 20:23 → 2SO 22:48
PROVIDERS: Emergency Medicine; Hospitalist; Internal Medicine
PROC: 5A09457 Assistance with Respiratory Ventilation, 24-96 Consecutive Hours, Continuous Positive Airway Pressure (ICD-10-PCS; principal; 2016-05-05)
DX: J96.21 Acute and chronic respiratory failure with hypoxia (principal); E11.22 Type 2 diabetes mellitus with diabetic chronic kidney disease; N17.9 Acute kidney failure, unspecified; N18.4 Chronic kidney disease, stage 4 (severe); G20 Parkinson's disease; F03.90 Unspecified dementia, unspecified severity, without behavioral disturbance, psychotic disturbance, mood disturbance, and anxiety; J44.1 Chronic obstructive pulmonary disease with (acute) exacerbation; N39.0 Urinary tract infection, site not specified; Z68.41 Body mass index [BMI] 40.0-44.9, adult; S42.201A Unspecified fracture of upper end of right humerus, initial encounter for closed fracture; J96.22 Acute and chronic respiratory failure with hypercapnia; I12.9 Hypertensive chronic kidney disease with stage 1 through stage 4 chronic kidney disease, or unspecified chronic kidney disease; B96.20 Unspecified Escherichia coli [E. coli] as the cause of diseases classified elsewhere; G89.29 Other chronic pain; E78.00 Pure hypercholesterolemia, unspecified; E66.01 Morbid (severe) obesity due to excess calories; E87.5 Hyperkalemia; Z99.81 Dependence on supplemental oxygen; Z98.890 Other specified postprocedural states; Z88.2 Allergy status to sulfonamides; Z87.891 Personal history of nicotine dependence; Z82.49 Family history of ischemic heart disease and other diseases of the circulatory system; Z83.3 Family history of diabetes mellitus
CPT/HCPCS: 36600; 70450; 71010; 71275; 73030-RT; 80048; 80053; 80069; 81001; 82140; 82570; 82805; 82962; 83036; 83605; 83735; 83880; 84100; 84132; 84133; 84145; 84300; 84443; 84484; 85025; 85610; 85730; 87077; 87086; 87186; 87449; 93005; 94640; 94660; 96374; 97110-GO; 97110-GP; 97161-GP; 97167-GO; 97530-GP; 99291; A9270-GY; G8978-CL-GP; G8979-CK-GP; G8987-CL-GO; G8988-CK-GO; J0360; J0690; J1956; J2920; Q9967